=== PATIENT | male | born 1955 | race Caucasian/White ===

== ENCOUNTER 2020-08-02 14:08 | Inpatient (IN) ==
[2020-08-02] MEDS ORDERED: NON-FORMULARY MEDICATION 1 EACH EACH (Sildenafil Citrate [Viagra] 50 MG) PO PRN (21:12)
[2020-08-02] MEDS ORDERED: VANCOMYCIN 1500 MG IVPB SCH (21:15)
[2020-08-02] MEDS: *HR* OxyCODONE/APAP 5/325 TABLET PO PRN (22:11)
[2020-08-02] MEDS: Doxycycline 100 MG CAPSULE PO SCH (22:12)
[2020-08-03] MEDS: *HR* OxyCODONE Immed Rel 5 MG TABLET PO PRN ×3 (04:55→21:14)
[2020-08-03 04:57] LABS: Basophils % 0.4 %; Eosinophils # 0.7 K/mcL (0.0-0.6); Eosinophils % 7.5 %; Hematocrit 29.8 % (37.5-50.1); Hemoglobin 9.6 g/dL (12.9-16.9); Immature Granulocytes % 0.5 % (0-4); Lymphocytes # 0.6 K/mcL (0.6-4.6); Lymphocytes % 5.9 %; Mean Corpuscular HGB Conc 32.2 g/dL (31.6-35.5); Mean Corpuscular Hemoglobin 27.1 pg (28.0-33.3); Mean Corpuscular Volume 84.2 fL (83.0-100.0); Mean Platelet Volume 8.6 fL (9.4-12.4); Monocytes # 0.8 K/mcL (0.0-1.3); Neutrophils # 7.4 K/mcL (1.6-8.9); Platelet Count 276 K/mcL (140-400); Red Blood Count 3.54 M/mcL (4.19-5.50); Red Cell Distribution Width 16.1 % (11.5-14.5); Segmented Neutrophils % 77.7 %; White Blood Count 9.5 K/mcL (4.3-11.1)
[2020-08-03 05:01] LABS: INR 1.3; Prothrombin Time 14.4 Seconds (9.4-12.1)
[2020-08-03 05:12] LABS: BUN/Creatinine Ratio 27 (6-26); Blood Urea Nitrogen 16 mg/dL (8-23); Calcium 8.2 mg/dL (8.6-10.3); Carbon Dioxide 27 mEq/L (23-29); Chloride 104 mEq/L (98-107); Glucose 110 mg/dL (70-105); Osmolality,Calculated 284 (280-300); Potassium 4.1 mEq/L (3.5-5.1); Sodium 136 mEq/L (136-145); eGFR For African Americans > 60 (> 60); eGFR For Non-African Americans > 60 (> 60)
[2020-08-03] MEDS: amLODIPine 5 MG TABLET PO SCH (09:25)
[2020-08-03] MEDS: levoFLOXacin 750 MG TABLET PO SCH (09:25)
[2020-08-03] MEDS: Aspirin Enteric Coated 81 MG Tablet PO SCH (09:26)
[2020-08-03] MEDS: Doxycycline 100 MG CAPSULE PO SCH ×2 (09:26→21:14)
[2020-08-03] MEDS: *HR* OxyCODONE/APAP 5/325 TABLET PO PRN (10:40)
[2020-08-03] MEDS: Vancomycin 1,750 MG/517.5 ML IV.SOLN IVPB SCH ×2 (10:41→21:28)
[2020-08-03] MEDS: *HR* Enoxaparin 40 MG/0.4 ML SYRINGE SQ SCH (11:44)
[2020-08-04] MEDS: *HR* OxyCODONE/APAP 5/325 TABLET PO PRN ×2 (00:41→13:04)
[2020-08-04] MEDS: *HR* Enoxaparin 40 MG/0.4 ML SYRINGE SQ SCH (05:28)
[2020-08-04] MEDS: *HR* OxyCODONE Immed Rel 5 MG TABLET PO PRN ×2 (05:29→18:32)
[2020-08-04] MEDS: Aspirin Enteric Coated 81 MG Tablet PO SCH (08:29)
[2020-08-04] MEDS: Doxycycline 100 MG CAPSULE PO SCH (08:29)
[2020-08-04] MEDS: amLODIPine 5 MG TABLET PO SCH (08:29)
[2020-08-04] MEDS: levoFLOXacin 750 MG TABLET PO SCH (08:29)
[2020-08-04] MEDS: Vancomycin 1,750 MG/517.5 ML IV.SOLN IVPB SCH (11:01)
[2020-08-04] MEDS: tiZANidine 4 MG TABLET PO SCH ×2 (16:35→22:11)
[2020-08-04] MEDS: Acetaminophen 325 MG TABLET PO PRN (22:11)
[2020-08-04] MEDS: Vancomycin 2,000 MG/520 ML IV.SOLN IVPB SCH (22:12)
[2020-08-05] MEDS: *HR* Enoxaparin 40 MG/0.4 ML SYRINGE SQ SCH (04:47)
[2020-08-05] MEDS: *HR* OxyCODONE/APAP 5/325 TABLET PO PRN (04:47)
[2020-08-05] MEDS: amLODIPine 5 MG TABLET PO SCH (08:39)
[2020-08-05] MEDS: tiZANidine 4 MG TABLET PO SCH ×3 (08:39→22:05)
[2020-08-05] MEDS: Aspirin Enteric Coated 81 MG Tablet PO SCH (08:39)
[2020-08-05] MEDS: *HR* OxyCODONE Immed Rel 5 MG TABLET PO PRN ×2 (10:42→17:54)
[2020-08-05] MEDS: Vancomycin 2,000 MG/520 ML IV.SOLN IVPB SCH ×2 (11:16→22:09)
[2020-08-05 11:42] LABS: eGFR For African Americans > 60 (> 60); eGFR For Non-African Americans > 60 (> 60)
[2020-08-05] MEDS: Acetaminophen 325 MG TABLET PO PRN (22:06)
[2020-08-06] MEDS: *HR* OxyCODONE Immed Rel 5 MG TABLET PO PRN ×3 (00:18→22:58)
[2020-08-06] MEDS: *HR* OxyCODONE/APAP 5/325 TABLET PO PRN (04:55)
[2020-08-06] MEDS: *HR* Enoxaparin 40 MG/0.4 ML SYRINGE SQ SCH (04:55)
[2020-08-06] MEDS: tiZANidine 4 MG TABLET PO SCH ×3 (09:03→22:56)
[2020-08-06] MEDS: amLODIPine 5 MG TABLET PO SCH (09:03)
[2020-08-06] MEDS: Aspirin Enteric Coated 81 MG Tablet PO SCH (09:03)
[2020-08-06] MEDS: Vancomycin 2,000 MG/520 ML IV.SOLN IVPB SCH ×2 (11:59→22:47)
[2020-08-07] MEDS: *HR* OxyCODONE Immed Rel 5 MG TABLET PO PRN ×2 (05:01→21:40)
[2020-08-07] MEDS: *HR* Enoxaparin 40 MG/0.4 ML SYRINGE SQ SCH (05:02)
[2020-08-07 06:57] LABS: Basophils # 0.1 K/mcL (0.0-0.2); Basophils % 0.6 %; Eosinophils # 0.6 K/mcL (0.0-0.6); Eosinophils % 6.6 %; Hematocrit 28.5 % (37.5-50.1); Hemoglobin 8.9 g/dL (12.9-16.9); Immature Granulocytes % 0.6 % (0-4); Lymphocytes # 0.7 K/mcL (0.6-4.6); Lymphocytes % 8.3 %; Mean Corpuscular HGB Conc 31.2 g/dL (31.6-35.5); Mean Corpuscular Hemoglobin 26.5 pg (28.0-33.3); Mean Corpuscular Volume 84.8 fL (83.0-100.0); Mean Platelet Volume 8.6 fL (9.4-12.4); Monocytes # 0.6 K/mcL (0.0-1.3); Monocytes % 6.8 %; Neutrophils # 6.5 K/mcL (1.6-8.9); Platelet Count 390 K/mcL (140-400); Red Blood Count 3.36 M/mcL (4.19-5.50); Red Cell Distribution Width 15.9 % (11.5-14.5); Segmented Neutrophils % 77.1 %; White Blood Count 8.4 K/mcL (4.3-11.1)
[2020-08-07 07:50] LABS: BUN/Creatinine Ratio 16 (6-26); Blood Urea Nitrogen 9 mg/dL (8-23); Calcium 8.5 mg/dL (8.6-10.3); Carbon Dioxide 26 mEq/L (23-29); Chloride 106 mEq/L (98-107); Glucose 111 mg/dL (70-105); Osmolality,Calculated 287 (280-300); Potassium 3.7 mEq/L (3.5-5.1); Sodium 139 mEq/L (136-145); eGFR For African Americans > 60 (> 60); eGFR For Non-African Americans > 60 (> 60)
[2020-08-07] MEDS: Aspirin Enteric Coated 81 MG Tablet PO SCH (08:24)
[2020-08-07] MEDS: amLODIPine 5 MG TABLET PO SCH (08:24)
[2020-08-07] MEDS: tiZANidine 4 MG TABLET PO SCH ×3 (08:24→21:26)
[2020-08-07] MEDS: Vancomycin 2,000 MG/520 ML IV.SOLN IVPB SCH ×2 (10:50→21:29)
[2020-08-07] MEDS ORDERED: *HR* OxyCODONE Immed Rel 5 MG TABLET PO PRN (15:30)
[2020-08-07] MEDS: Gabapentin 100 MG CAPSULE PO SCH ×2 (16:07→21:25)
[2020-08-07] MEDS ORDERED: Gabapentin 100 MG CAPSULE PO SCH (21:00)
[2020-08-08] MEDS: *HR* OxyCODONE Immed Rel 5 MG TABLET PO PRN ×3 (05:15→22:29)
[2020-08-08] MEDS: *HR* Enoxaparin 40 MG/0.4 ML SYRINGE SQ SCH (05:15)
[2020-08-08] MEDS: Aspirin Enteric Coated 81 MG Tablet PO SCH (08:29)
[2020-08-08] MEDS: Gabapentin 100 MG CAPSULE PO SCH ×3 (08:29→22:29)
[2020-08-08] MEDS: tiZANidine 4 MG TABLET PO SCH ×3 (08:30→22:29)
[2020-08-08] MEDS: amLODIPine 5 MG TABLET PO SCH (08:30)
[2020-08-08] MEDS: Vancomycin 2,000 MG/520 ML IV.SOLN IVPB SCH ×2 (10:04→22:12)
[2020-08-09] MEDS: *HR* OxyCODONE Immed Rel 5 MG TABLET PO PRN ×2 (06:20→21:23)
[2020-08-09] MEDS: *HR* Enoxaparin 40 MG/0.4 ML SYRINGE SQ SCH (06:20)
[2020-08-09] MEDS: Aspirin Enteric Coated 81 MG Tablet PO SCH (09:17)
[2020-08-09] MEDS: tiZANidine 4 MG TABLET PO SCH ×3 (09:17→21:23)
[2020-08-09] MEDS: Gabapentin 100 MG CAPSULE PO SCH ×3 (09:17→21:22)
[2020-08-09] MEDS: amLODIPine 5 MG TABLET PO SCH (09:17)
[2020-08-09] MEDS: Vancomycin 2,000 MG/520 ML IV.SOLN IVPB SCH ×2 (11:14→21:24)
[2020-08-09 15:40] LABS: Basophils # 0.1 K/mcL (0.0-0.2); Basophils % 0.5 %; Eosinophils # 0.6 K/mcL (0.0-0.6); Eosinophils % 5.7 %; Hematocrit 28.8 % (37.5-50.1); Hemoglobin 9.2 g/dL (12.9-16.9); Immature Granulocytes % 0.4 % (0-4); Lymphocytes # 0.6 K/mcL (0.6-4.6); Lymphocytes % 5.8 %; Mean Corpuscular HGB Conc 31.9 g/dL (31.6-35.5); Mean Corpuscular Hemoglobin 26.9 pg (28.0-33.3); Mean Corpuscular Volume 84.2 fL (83.0-100.0); Mean Platelet Volume 8.1 fL (9.4-12.4); Monocytes # 0.6 K/mcL (0.0-1.3); Monocytes % 5.8 %; Neutrophils # 7.9 K/mcL (1.6-8.9); Platelet Count 358 K/mcL (140-400); Red Blood Count 3.42 M/mcL (4.19-5.50); Red Cell Distribution Width 15.9 % (11.5-14.5); Segmented Neutrophils % 81.8 %; White Blood Count 9.7 K/mcL (4.3-11.1)
[2020-08-09 16:13] LABS: BUN/Creatinine Ratio 20 (6-26); Blood Urea Nitrogen 12 mg/dL (8-23); Calcium 8.4 mg/dL (8.6-10.3); Carbon Dioxide 26 mEq/L (23-29); Chloride 106 mEq/L (98-107); Glucose 120 mg/dL (70-105); Osmolality,Calculated 289 (280-300); Potassium 3.6 mEq/L (3.5-5.1); Sodium 139 mEq/L (136-145); eGFR For African Americans > 60 (> 60); eGFR For Non-African Americans > 60 (> 60)
[2020-08-10] MEDS: *HR* OxyCODONE Immed Rel 5 MG TABLET PO PRN ×2 (06:44→17:49)
[2020-08-10] MEDS: *HR* Enoxaparin 40 MG/0.4 ML SYRINGE SQ SCH (06:46)
[2020-08-10] MEDS: tiZANidine 4 MG TABLET PO SCH ×3 (08:35→22:51)
[2020-08-10] MEDS: Aspirin Enteric Coated 81 MG Tablet PO SCH (08:35)
[2020-08-10] MEDS: amLODIPine 5 MG TABLET PO SCH (08:35)
[2020-08-10] MEDS: Gabapentin 100 MG CAPSULE PO SCH ×3 (08:35→22:51)
[2020-08-10 09:24] LABS: eGFR For African Americans > 60 (> 60); eGFR For Non-African Americans > 60 (> 60)
[2020-08-10] MEDS: Vancomycin 2,000 MG/520 ML IV.SOLN IVPB SCH ×2 (11:14→22:53)
[2020-08-11] MEDS: *HR* Enoxaparin 40 MG/0.4 ML SYRINGE SQ SCH (06:36)
[2020-08-11] MEDS: *HR* OxyCODONE Immed Rel 5 MG TABLET PO PRN ×2 (10:02→16:02)
[2020-08-11] MEDS: tiZANidine 4 MG TABLET PO SCH ×3 (10:02→21:49)
[2020-08-11] MEDS: Aspirin Enteric Coated 81 MG Tablet PO SCH (10:02)
[2020-08-11] MEDS: Vancomycin 2,000 MG/520 ML IV.SOLN IVPB SCH ×2 (10:03→21:52)
[2020-08-11] MEDS: Gabapentin 100 MG CAPSULE PO SCH ×3 (10:03→21:49)
[2020-08-11] MEDS: amLODIPine 5 MG TABLET PO SCH (10:03)
[2020-08-11] MEDS: *HR* OxyCODONE/APAP 5/325 TABLET PO PRN (21:49)
[2020-08-12] MEDS: *HR* Enoxaparin 40 MG/0.4 ML SYRINGE SQ SCH (06:16)
[2020-08-12] MEDS: *HR* OxyCODONE/APAP 5/325 TABLET PO PRN ×2 (06:16→20:46)
[2020-08-12] MEDS: Aspirin Enteric Coated 81 MG Tablet PO SCH (09:40)
[2020-08-12] MEDS: Acetaminophen 325 MG TABLET PO PRN (09:40)
[2020-08-12] MEDS: tiZANidine 4 MG TABLET PO SCH ×3 (09:40→20:45)
[2020-08-12] MEDS: amLODIPine 5 MG TABLET PO SCH (09:41)
[2020-08-12] MEDS: Gabapentin 100 MG CAPSULE PO SCH ×3 (09:41→20:45)
[2020-08-12] MEDS: Vancomycin 2,000 MG/520 ML IV.SOLN IVPB SCH ×2 (11:06→20:46)
[2020-08-12] MEDS: *HR* OxyCODONE Immed Rel 5 MG TABLET PO PRN (15:31)
[2020-08-13] MEDS: *HR* OxyCODONE Immed Rel 5 MG TABLET PO PRN ×2 (05:32→17:54)
[2020-08-13] MEDS: tiZANidine 4 MG TABLET PO SCH ×3 (09:06→22:09)
[2020-08-13] MEDS: amLODIPine 5 MG TABLET PO SCH (09:06)
[2020-08-13] MEDS: Gabapentin 100 MG CAPSULE PO SCH ×3 (09:06→22:09)
[2020-08-13 09:23] LABS: Basophils # 0.1 K/mcL (0.0-0.2); Basophils % 0.8 %; Eosinophils # 0.5 K/mcL (0.0-0.6); Eosinophils % 7.3 %; Hematocrit 30.5 % (37.5-50.1); Hemoglobin 9.7 g/dL (12.9-16.9); Immature Granulocytes % 0.3 % (0-4); Lymphocytes # 0.6 K/mcL (0.6-4.6); Lymphocytes % 8.9 %; Mean Corpuscular HGB Conc 31.8 g/dL (31.6-35.5); Mean Corpuscular Hemoglobin 26.5 pg (28.0-33.3); Mean Corpuscular Volume 83.3 fL (83.0-100.0); Mean Platelet Volume 8.1 fL (9.4-12.4); Monocytes # 0.5 K/mcL (0.0-1.3); Platelet Count 313 K/mcL (140-400); Red Blood Count 3.66 M/mcL (4.19-5.50); Red Cell Distribution Width 15.7 % (11.5-14.5); Segmented Neutrophils % 75.7 %; White Blood Count 6.5 K/mcL (4.3-11.1)
[2020-08-13] MEDS: *HR* OxyCODONE/APAP 5/325 TABLET PO PRN ×2 (10:59→22:07)
[2020-08-13] MEDS: Vancomycin 2,000 MG/520 ML IV.SOLN IVPB SCH (10:59)
[2020-08-13 15:46] LABS: BUN/Creatinine Ratio 12 (6-26); Blood Urea Nitrogen 7 mg/dL (8-23); Calcium 8.5 mg/dL (8.6-10.3); Carbon Dioxide 24 mEq/L (23-29); Chloride 104 mEq/L (98-107); Glucose 128 mg/dL (70-105); Osmolality,Calculated 286 (280-300); Potassium 3.9 mEq/L (3.5-5.1); Sodium 138 mEq/L (136-145); eGFR For African Americans > 60 (> 60); eGFR For Non-African Americans > 60 (> 60)
[2020-08-13 19:48] LABS: C-Reactive Protein 48 mg/L (Less than 10)
[2020-08-14] MEDS: Vancomycin 2,000 MG/520 ML IV.SOLN IVPB SCH ×2 (02:06→13:46)
[2020-08-14] MEDS: *HR* OxyCODONE Immed Rel 5 MG TABLET PO PRN (09:02)
[2020-08-14] MEDS: amLODIPine 5 MG TABLET PO SCH (09:02)
[2020-08-14] MEDS: Gabapentin 100 MG CAPSULE PO SCH ×3 (09:03→21:52)
[2020-08-14] MEDS: tiZANidine 4 MG TABLET PO SCH ×3 (09:03→21:52)
[2020-08-14] MEDS: Nystatin Cream 15 GM TUBE TP SCH ×2 (13:47→21:52)
[2020-08-14] MEDS: Acetaminophen 325 MG TABLET PO PRN (21:51)
[2020-08-15] MEDS: Vancomycin 2,000 MG/520 ML IV.SOLN IVPB SCH ×2 (01:44→13:59)
[2020-08-15] MEDS: *HR* OxyCODONE Immed Rel 5 MG TABLET PO PRN ×3 (01:45→18:19)
[2020-08-15] MEDS: amLODIPine 5 MG TABLET PO SCH (09:50)
[2020-08-15] MEDS: tiZANidine 4 MG TABLET PO SCH ×3 (09:50→20:12)
[2020-08-15] MEDS: Nystatin Cream 15 GM TUBE TP SCH ×3 (09:50→20:12)
[2020-08-15] MEDS: Gabapentin 100 MG CAPSULE PO SCH ×3 (09:50→20:12)
[2020-08-15] MEDS: Acetaminophen 325 MG TABLET PO PRN (20:12)
[2020-08-16] MEDS: Vancomycin 2,000 MG/520 ML IV.SOLN IVPB SCH ×2 (02:12→14:32)
[2020-08-16] MEDS: *HR* OxyCODONE Immed Rel 5 MG TABLET PO PRN ×2 (04:04→15:34)
[2020-08-16] MEDS: tiZANidine 4 MG TABLET PO SCH ×3 (09:09→23:09)
[2020-08-16] MEDS: Nystatin Cream 15 GM TUBE TP SCH ×3 (09:10→23:10)
[2020-08-16] MEDS: amLODIPine 5 MG TABLET PO SCH (09:10)
[2020-08-16] MEDS: Gabapentin 100 MG CAPSULE PO SCH ×3 (09:10→23:09)
[2020-08-16 13:56] LABS: BUN/Creatinine Ratio 16 (6-26); Blood Urea Nitrogen 13 mg/dL (8-23); eGFR For African Americans > 60 (> 60); eGFR For Non-African Americans > 60 (> 60)
[2020-08-16] MEDS: Vancomycin 1,750 MG/517.5 ML IV.SOLN IVPB SCH (18:52)
[2020-08-16] MEDS ORDERED: *HR* OxyCODONE/APAP 5/325 TABLET PO PRN (21:27)
[2020-08-17] MEDS: *HR* OxyCODONE Immed Rel 5 MG TABLET PO PRN ×3 (01:59→14:33)
[2020-08-17] MEDS: Vancomycin 1,750 MG/517.5 ML IV.SOLN IVPB SCH ×2 (06:48→18:32)
[2020-08-17] MEDS: Nystatin Cream 15 GM TUBE TP SCH ×3 (08:28→20:58)
[2020-08-17] MEDS: amLODIPine 5 MG TABLET PO SCH (08:29)
[2020-08-17] MEDS: Gabapentin 100 MG CAPSULE PO SCH ×3 (08:29→20:58)
[2020-08-17] MEDS: tiZANidine 4 MG TABLET PO SCH ×3 (08:29→20:58)
[2020-08-18] MEDS: *HR* OxyCODONE Immed Rel 5 MG TABLET PO PRN ×3 (01:33→21:07)
[2020-08-18 05:47] LABS: Hemoglobin 8.9 g/dL (12.9-16.9); Mean Corpuscular HGB Conc 31.8 g/dL (31.6-35.5); Mean Corpuscular Hemoglobin 26.3 pg (28.0-33.3); Mean Corpuscular Volume 82.8 fL (83.0-100.0); Mean Platelet Volume 8.2 fL (9.4-12.4); Platelet Count 225 K/mcL (140-400); Red Blood Count 3.38 M/mcL (4.19-5.50); Red Cell Distribution Width 15.9 % (11.5-14.5); White Blood Count 5.8 K/mcL (4.3-11.1)
[2020-08-18 06:01] LABS: BUN/Creatinine Ratio 16 (6-26); Blood Urea Nitrogen 21 mg/dL (8-23); Calcium 8.6 mg/dL (8.6-10.3); Carbon Dioxide 28 mEq/L (23-29); Chloride 105 mEq/L (98-107); Glucose 110 mg/dL (70-105); Magnesium 1.8 mg/dL (1.6-2.6); Osmolality,Calculated 294 (280-300); Potassium 4.2 mEq/L (3.5-5.1); Sodium 140 mEq/L (136-145); eGFR For African Americans > 60 (> 60); eGFR For Non-African Americans 54 (> 60)
[2020-08-18] MEDS: Vancomycin 1,750 MG/517.5 ML IV.SOLN IVPB SCH (07:59)
[2020-08-18] MEDS: Nystatin Cream 15 GM TUBE TP SCH ×3 (08:08→21:09)
[2020-08-18] MEDS: amLODIPine 5 MG TABLET PO SCH (08:09)
[2020-08-18] MEDS: Gabapentin 100 MG CAPSULE PO SCH (08:10)
[2020-08-18] MEDS: tiZANidine 4 MG TABLET PO SCH ×3 (08:10→21:07)
[2020-08-19] MEDS: *HR* OxyCODONE Immed Rel 5 MG TABLET PO PRN ×3 (03:47→16:04)
[2020-08-19] MEDS: tiZANidine 4 MG TABLET PO SCH ×3 (09:43→20:53)
[2020-08-19] MEDS: amLODIPine 5 MG TABLET PO SCH (09:44)
[2020-08-19] MEDS: Nystatin Cream 15 GM TUBE TP SCH ×3 (09:46→20:55)
[2020-08-20] MEDS: *HR* OxyCODONE Immed Rel 5 MG TABLET PO PRN ×3 (04:54→20:37)
[2020-08-20 05:37] LABS: eGFR For African Americans > 60 (> 60); eGFR For Non-African Americans 54 (> 60)
[2020-08-20] MEDS: tiZANidine 4 MG TABLET PO SCH ×3 (07:50→20:37)
[2020-08-20] MEDS: amLODIPine 5 MG TABLET PO SCH (07:50)
[2020-08-20] MEDS: Nystatin Cream 15 GM TUBE TP SCH ×3 (07:51→20:38)
[2020-08-20] MEDS ORDERED: Vancomycin 1,000 MG, Vancomycin 500 MG in 0.9 % Sodium Chloride 250 ML IVPB ONE (12:00)
[2020-08-20] MEDS: 0.9 % Sodium Chloride 1,000 ML IVC SCH ×2 (12:08→18:52)
[2020-08-20] MEDS: Ondansetron ODT 4 MG TAB.RAPDIS SL PRN (12:08)
[2020-08-20 12:12] LABS: Basophils % 0.5 %; Eosinophils # 0.2 K/mcL (0.0-0.6); Eosinophils % 2.9 %; Hematocrit 27.7 % (37.5-50.1); Hemoglobin 8.8 g/dL (12.9-16.9); Immature Granulocytes % 0.5 % (0-4); Lymphocytes # 0.4 K/mcL (0.6-4.6); Lymphocytes % 4.5 %; Mean Corpuscular HGB Conc 31.8 g/dL (31.6-35.5); Mean Corpuscular Hemoglobin 26.2 pg (28.0-33.3); Mean Corpuscular Volume 82.4 fL (83.0-100.0); Mean Platelet Volume 8.4 fL (9.4-12.4); Monocytes # 0.9 K/mcL (0.0-1.3); Monocytes % 10.6 %; Neutrophils # 6.5 K/mcL (1.6-8.9); Platelet Count 232 K/mcL (140-400); Red Blood Count 3.36 M/mcL (4.19-5.50); Red Cell Distribution Width 15.6 % (11.5-14.5)
[2020-08-20 12:44] LABS: Calcium 8.8 mg/dL (8.6-10.3); Potassium 4.6 mEq/L (3.5-5.1)
[2020-08-20] MEDS ORDERED: Vancomycin 500 MG in 0.9 % Sodium Chloride 250 ML IVPB ONE (14:00)
[2020-08-21] MEDS: *HR* OxyCODONE Immed Rel 5 MG TABLET PO PRN ×3 (02:17→17:40)
[2020-08-21 07:01] LABS: eGFR For African Americans > 60 (> 60); eGFR For Non-African Americans 50 (> 60)
[2020-08-21] MEDS: Nystatin Cream 15 GM TUBE TP SCH ×3 (08:21→20:42)
[2020-08-21] MEDS: amLODIPine 5 MG TABLET PO SCH (08:22)
[2020-08-21] MEDS: tiZANidine 4 MG TABLET PO SCH ×3 (08:22→20:43)
[2020-08-21] MEDS: Vancomycin 1,500 MG/265 ML IV.SOLN IVPB SCH (12:01)
[2020-08-22] MEDS: *HR* OxyCODONE Immed Rel 5 MG TABLET PO PRN ×3 (01:08→21:09)
[2020-08-22] MEDS: Ondansetron ODT 4 MG TAB.RAPDIS SL PRN (06:41)
[2020-08-22] MEDS: tiZANidine 4 MG TABLET PO SCH ×3 (09:58→21:08)
[2020-08-22] MEDS: Nystatin Cream 15 GM TUBE TP SCH ×3 (09:59→21:10)
[2020-08-22] MEDS: amLODIPine 5 MG TABLET PO SCH (09:59)
[2020-08-22] MEDS: Vancomycin 1,500 MG/265 ML IV.SOLN IVPB SCH (13:05)
[2020-08-23] MEDS: *HR* OxyCODONE Immed Rel 5 MG TABLET PO PRN ×3 (03:21→21:08)
[2020-08-23] MEDS: amLODIPine 5 MG TABLET PO SCH (08:37)
[2020-08-23] MEDS: tiZANidine 4 MG TABLET PO SCH ×3 (08:38→21:08)
[2020-08-23] MEDS: Nystatin Cream 15 GM TUBE TP SCH ×3 (08:38→21:52)
[2020-08-23] MEDS: Vancomycin 1,500 MG/265 ML IV.SOLN IVPB SCH (12:39)
[2020-08-24] MEDS: *HR* OxyCODONE Immed Rel 5 MG TABLET PO PRN (05:09)
[2020-08-24 05:43] LABS: eGFR For African Americans > 60 (> 60); eGFR For Non-African Americans 53 (> 60)
[2020-08-24] MEDS: tiZANidine 4 MG TABLET PO SCH ×3 (08:00→20:30)
[2020-08-24] MEDS: amLODIPine 5 MG TABLET PO SCH (08:01)
[2020-08-24] MEDS: Nystatin Cream 15 GM TUBE TP SCH ×3 (08:01→20:31)
[2020-08-24] MEDS: Vancomycin 1,500 MG/265 ML IV.SOLN IVPB SCH (11:47)
[2020-08-24] MEDS: Ondansetron ODT 4 MG TAB.RAPDIS SL PRN (15:45)
[2020-08-24] MEDS: Acetaminophen 325 MG TABLET PO PRN (20:31)
[2020-08-25 05:45] LABS: Basophils % 0.7 %; Eosinophils # 0.6 K/mcL (0.0-0.6); Eosinophils % 9.6 %; Hemoglobin 8.2 g/dL (12.9-16.9); Immature Granulocytes % 0.3 % (0-4); Lymphocytes # 0.8 K/mcL (0.6-4.6); Lymphocytes % 12.7 %; Mean Corpuscular HGB Conc 31.5 g/dL (31.6-35.5); Mean Corpuscular Hemoglobin 25.7 pg (28.0-33.3); Mean Corpuscular Volume 81.5 fL (83.0-100.0); Mean Platelet Volume 8.6 fL (9.4-12.4); Monocytes # 0.5 K/mcL (0.0-1.3); Monocytes % 8.7 %; Neutrophils # 4.1 K/mcL (1.6-8.9); Platelet Count 241 K/mcL (140-400); Red Blood Count 3.19 M/mcL (4.19-5.50); Red Cell Distribution Width 14.9 % (11.5-14.5); White Blood Count 6.1 K/mcL (4.3-11.1)
[2020-08-25 05:58] LABS: BUN/Creatinine Ratio 12 (6-26); Blood Urea Nitrogen 16 mg/dL (8-23); Calcium 8.4 mg/dL (8.6-10.3); Carbon Dioxide 28 mEq/L (23-29); Chloride 103 mEq/L (98-107); Glucose 101 mg/dL (70-105); Osmolality,Calculated 289 (280-300); Potassium 3.4 mEq/L (3.5-5.1); Sodium 139 mEq/L (136-145); eGFR For African Americans > 60 (> 60); eGFR For Non-African Americans 55 (> 60)
[2020-08-25] MEDS: *HR* OxyCODONE Immed Rel 5 MG TABLET PO PRN ×3 (06:05→20:37)
[2020-08-25] MEDS: amLODIPine 5 MG TABLET PO SCH (09:16)
[2020-08-25] MEDS: tiZANidine 4 MG TABLET PO SCH ×3 (09:16→20:37)
[2020-08-25] MEDS: Nystatin Cream 15 GM TUBE TP SCH ×5 (09:17→20:37)
[2020-08-25 10:15] LABS: C-Reactive Protein 84 mg/L (Less than 10)
[2020-08-25] MEDS: Vancomycin 1,500 MG/265 ML IV.SOLN IVPB SCH (12:45)
[2020-08-26] MEDS: *HR* OxyCODONE Immed Rel 5 MG TABLET PO PRN ×3 (03:32→21:44)
[2020-08-26 07:48] LABS: Basophils % 0.7 %; Eosinophils # 0.6 K/mcL (0.0-0.6); Eosinophils % 9.6 %; Hematocrit 26.3 % (37.5-50.1); Hemoglobin 8.4 g/dL (12.9-16.9); Immature Granulocytes % 0.3 % (0-4); Lymphocytes % 16.2 %; Mean Corpuscular HGB Conc 31.9 g/dL (31.6-35.5); Mean Corpuscular Hemoglobin 25.8 pg (28.0-33.3); Mean Corpuscular Volume 80.7 fL (83.0-100.0); Mean Platelet Volume 8.4 fL (9.4-12.4); Monocytes # 0.6 K/mcL (0.0-1.3); Monocytes % 10.1 %; Neutrophils # 3.7 K/mcL (1.6-8.9); Platelet Count 245 K/mcL (140-400); Red Blood Count 3.26 M/mcL (4.19-5.50); Red Cell Distribution Width 15.1 % (11.5-14.5); Segmented Neutrophils % 63.1 %; White Blood Count 5.9 K/mcL (4.3-11.1)
[2020-08-26 07:58] LABS: eGFR For African Americans > 60 (> 60); eGFR For Non-African Americans 59 (> 60)
[2020-08-26] MEDS: amLODIPine 5 MG TABLET PO SCH (08:14)
[2020-08-26] MEDS: tiZANidine 4 MG TABLET PO SCH ×3 (08:14→21:44)
[2020-08-26] MEDS: Nystatin Cream 15 GM TUBE TP SCH ×3 (08:14→21:43)
[2020-08-26] MEDS: Ondansetron ODT 4 MG TAB.RAPDIS SL PRN (09:18)
[2020-08-26] MEDS: Vancomycin 1,500 MG/265 ML IV.SOLN IVPB SCH (12:32)
[2020-08-26 15:13] LABS: BUN/Creatinine Ratio 11 (6-26); Blood Urea Nitrogen 14 mg/dL (8-23); Calcium 8.5 mg/dL (8.6-10.3); Carbon Dioxide 28 mEq/L (23-29); Chloride 103 mEq/L (98-107); Glucose 105 mg/dL (70-105); Osmolality,Calculated 289 (280-300); Potassium 3.6 mEq/L (3.5-5.1); Sodium 139 mEq/L (136-145)
[2020-08-27 05:07] LABS: eGFR For African Americans > 60 (> 60); eGFR For Non-African Americans 52 (> 60)
[2020-08-27] MEDS: *HR* OxyCODONE Immed Rel 5 MG TABLET PO PRN ×2 (06:11→14:06)
[2020-08-27 08:41] LABS: % Iron Saturation 11 % (20-55); Iron 26 mcg/dL (65-175); Transferrin 164 mg/dL (203-362)
[2020-08-27 09:06] LABS: Folate 9.8 ng/mL (3.0-16.0)
[2020-08-27] MEDS: Fluconazole 100 MG TABLET PO SCH (09:08)
[2020-08-27] MEDS: Nystatin Cream 15 GM TUBE TP SCH ×3 (09:08→21:05)
[2020-08-27] MEDS: amLODIPine 5 MG TABLET PO SCH (09:08)
[2020-08-27] MEDS: tiZANidine 4 MG TABLET PO SCH ×3 (09:08→21:05)
[2020-08-27] MEDS: Vancomycin 1,500 MG/265 ML IV.SOLN IVPB SCH (12:40)
[2020-08-28] MEDS: *HR* OxyCODONE Immed Rel 5 MG TABLET PO PRN ×2 (04:53→20:56)
[2020-08-28] MEDS: tiZANidine 4 MG TABLET PO SCH ×3 (08:48→19:37)
[2020-08-28] MEDS: amLODIPine 5 MG TABLET PO SCH (08:48)
[2020-08-28] MEDS: Fluconazole 100 MG TABLET PO SCH (08:48)
[2020-08-28] MEDS: Nystatin Cream 15 GM TUBE TP SCH ×3 (08:49→19:37)
[2020-08-28] MEDS: Ondansetron ODT 4 MG TAB.RAPDIS SL PRN (10:23)
[2020-08-28 11:20] LABS: Basophils # 0.1 K/mcL (0.0-0.2); Basophils % 0.6 %; Eosinophils # 0.4 K/mcL (0.0-0.6); Eosinophils % 4.8 %; Hematocrit 24.6 % (37.5-50.1); Hemoglobin 7.7 g/dL (12.9-16.9); Immature Granulocytes % 0.2 % (0-4); Lymphocytes # 0.6 K/mcL (0.6-4.6); Lymphocytes % 7.1 %; Mean Corpuscular HGB Conc 31.3 g/dL (31.6-35.5); Mean Corpuscular Hemoglobin 25.8 pg (28.0-33.3); Mean Corpuscular Volume 82.3 fL (83.0-100.0); Mean Platelet Volume 8.5 fL (9.4-12.4); Monocytes # 0.7 K/mcL (0.0-1.3); Monocytes % 7.6 %; Neutrophils # 6.9 K/mcL (1.6-8.9); Platelet Count 216 K/mcL (140-400); Red Blood Count 2.99 M/mcL (4.19-5.50); Red Cell Distribution Width 15.3 % (11.5-14.5); Segmented Neutrophils % 79.7 %; White Blood Count 8.6 K/mcL (4.3-11.1)
[2020-08-28 11:48] LABS: eGFR For African Americans > 60 (> 60); eGFR For Non-African Americans 59 (> 60)
[2020-08-28] MEDS: Vancomycin 1,500 MG/265 ML IV.SOLN IVPB SCH (12:24)
[2020-08-29 06:14] LABS: eGFR For African Americans > 60 (> 60); eGFR For Non-African Americans > 60 (> 60)
[2020-08-29] MEDS: *HR* OxyCODONE Immed Rel 5 MG TABLET PO PRN ×2 (07:10→21:28)
[2020-08-29] MEDS: tiZANidine 4 MG TABLET PO SCH ×3 (08:44→21:27)
[2020-08-29] MEDS: Fluconazole 100 MG TABLET PO SCH (08:44)
[2020-08-29] MEDS: amLODIPine 5 MG TABLET PO SCH (08:44)
[2020-08-29] MEDS: Nystatin Cream 15 GM TUBE TP SCH ×3 (11:16→21:28)
[2020-08-29] MEDS: Vancomycin 1,500 MG/265 ML IV.SOLN IVPB SCH (12:08)
[2020-08-29 12:58] LABS: Basophils # 0.1 K/mcL (0.0-0.2); Basophils % 0.5 %; Eosinophils # 0.8 K/mcL (0.0-0.6); Hematocrit 25.6 % (37.5-50.1); Hemoglobin 7.8 g/dL (12.9-16.9); Immature Granulocytes % 0.3 % (0-4); Lymphocytes % 10.5 %; Mean Corpuscular HGB Conc 30.5 g/dL (31.6-35.5); Mean Corpuscular Hemoglobin 25.5 pg (28.0-33.3); Mean Corpuscular Volume 83.7 fL (83.0-100.0); Mean Platelet Volume 8.5 fL (9.4-12.4); Monocytes # 0.8 K/mcL (0.0-1.3); Monocytes % 8.4 %; Neutrophils # 6.5 K/mcL (1.6-8.9); Platelet Count 262 K/mcL (140-400); Red Blood Count 3.06 M/mcL (4.19-5.50); Red Cell Distribution Width 15.7 % (11.5-14.5); Segmented Neutrophils % 71.3 %; White Blood Count 9.2 K/mcL (4.3-11.1)
[2020-08-30] MEDS: *HR* OxyCODONE Immed Rel 5 MG TABLET PO PRN (06:26)
[2020-08-30] MEDS: Fluconazole 100 MG TABLET PO SCH (08:22)
[2020-08-30] MEDS: tiZANidine 4 MG TABLET PO SCH ×3 (08:22→20:40)
[2020-08-30] MEDS: amLODIPine 5 MG TABLET PO SCH (08:22)
[2020-08-30] MEDS: Nystatin Cream 15 GM TUBE TP SCH ×3 (08:22→20:40)
[2020-08-30] MEDS: Vancomycin 1,500 MG/265 ML IV.SOLN IVPB SCH (12:06)
[2020-08-30] MEDS: Ondansetron ODT 4 MG TAB.RAPDIS SL PRN (17:20)
[2020-08-30] MEDS: Acetaminophen 325 MG TABLET PO PRN (20:40)
[2020-08-31 05:43] LABS: eGFR For African Americans > 60 (> 60); eGFR For Non-African Americans 53 (> 60)
[2020-08-31] MEDS: *HR* OxyCODONE Immed Rel 5 MG TABLET PO PRN ×3 (05:57→21:21)
[2020-08-31] MEDS: tiZANidine 4 MG TABLET PO SCH ×3 (09:51→20:48)
[2020-08-31] MEDS: amLODIPine 5 MG TABLET PO SCH (09:51)
[2020-08-31] MEDS: Nystatin Cream 15 GM TUBE TP SCH ×3 (09:52→20:51)
[2020-08-31] MEDS ORDERED: Vancomycin 1,750 MG/517.5 ML IV.SOLN IVPB SCH (12:00)
[2020-09-01] MEDS: *HR* OxyCODONE Immed Rel 5 MG TABLET PO PRN ×3 (05:52→21:42)
[2020-09-01] MEDS ORDERED: Vancomycin 1 EACH in 0.9 % Sodium Chloride 250 ML IVPB PRN (08:00)
[2020-09-01] MEDS: Ondansetron ODT 4 MG TAB.RAPDIS SL PRN (08:40)
[2020-09-01] MEDS: amLODIPine 5 MG TABLET PO SCH (09:36)
[2020-09-01] MEDS: Nystatin Cream 15 GM TUBE TP SCH ×3 (09:37→21:42)
[2020-09-01] MEDS: tiZANidine 4 MG TABLET PO SCH ×3 (09:37→21:42)
[2020-09-02] MEDS: *HR* OxyCODONE Immed Rel 5 MG TABLET PO PRN ×2 (06:40→20:28)
[2020-09-02] MEDS: tiZANidine 4 MG TABLET PO SCH ×3 (08:47→20:28)
[2020-09-02] MEDS: amLODIPine 5 MG TABLET PO SCH (08:47)
[2020-09-02] MEDS: Nystatin Cream 15 GM TUBE TP SCH ×3 (08:48→20:27)
[2020-09-02 11:17] LABS: INR 1.4; Prothrombin Time 15.5 Seconds (9.4-12.1)
[2020-09-02 17:25] LABS: Bilirubin,Urine Negative (Negative); Blood,Urine Trace-lysed (Negative); Clarity,Urine Slightly Cloudy (Clear); Color,Urine Yellow (Yellow); Glucose,Urine (UA) Normal (Normal); Ketones,Urine Negative (Negative); Leukocyte Esterase,Urine Small (Negative); Nitrite,Urine Negative (Negative); PH,Urine 5.5 pH Units (5.0-8.0); Protein,Urine 30 mg/dL (Neg-Trace); Specific Gravity,Urine 1.025 (1.010-1.025); Urobilinogen,Urine Normal (Normal)
[2020-09-02 17:30] LABS: Hyaline Casts,Urine Few per lpf (None Seen); Mucus,Urine Few per lpf (None-Few); Squamous Epithelial Cell,Urine Few per hpf (None-Few); WBC,Urine 30-50 per hpf (0-3)
[2020-09-02 17:31] LABS: Bacteria,Urine Moderate per hpf (None-Few)
[2020-09-02] MEDS: Ondansetron ODT 4 MG TAB.RAPDIS SL PRN (20:29)
[2020-09-03] MEDS: *HR* OxyCODONE Immed Rel 5 MG TABLET PO PRN ×2 (06:12→20:31)
[2020-09-03] MEDS: tiZANidine 4 MG TABLET PO SCH ×3 (09:29→20:30)
[2020-09-03] MEDS: Nystatin Cream 15 GM TUBE TP SCH ×3 (09:29→21:01)
[2020-09-03] MEDS: amLODIPine 5 MG TABLET PO SCH (09:29)
[2020-09-04 05:18] LABS: Hemoglobin 6.9 g/dL (12.9-16.9); Mean Corpuscular HGB Conc 31.4 g/dL (31.6-35.5); Mean Corpuscular Hemoglobin 25.5 pg (28.0-33.3); Mean Corpuscular Volume 81.2 fL (83.0-100.0); Mean Platelet Volume 8.2 fL (9.4-12.4); Platelet Count 198 K/mcL (140-400); Red Blood Count 2.71 M/mcL (4.19-5.50); Red Cell Distribution Width 15.9 % (11.5-14.5); White Blood Count 6.9 K/mcL (4.3-11.1)
[2020-09-04 05:38] LABS: Albumin 3.2 g/dL (3.5-5.7); Albumin/Globulin Ratio 1.1 (1.1-2.2); Bilirubin,Total 0.4 mg/dL (0.3-1.0); Calcium 8.6 mg/dL (8.6-10.3); Globulin 2.8 g/dL (2.4-3.5); Magnesium 1.6 mg/dL (1.6-2.6); Potassium 3.5 mEq/L (3.5-5.1)
[2020-09-04] MEDS: *HR* OxyCODONE Immed Rel 5 MG TABLET PO PRN (07:34)
[2020-09-04] MEDS: Ondansetron ODT 4 MG TAB.RAPDIS SL PRN ×2 (08:04→18:49)
[2020-09-04] MEDS: Nystatin Cream 15 GM TUBE TP SCH ×3 (08:55→21:00)
[2020-09-04] MEDS: amLODIPine 5 MG TABLET PO SCH (08:55)
[2020-09-04] MEDS: tiZANidine 4 MG TABLET PO SCH ×3 (08:55→20:57)
[2020-09-04] MEDS ORDERED: 0.9 % Sodium Chloride 250 ML IVC SCH (11:45)
[2020-09-04] MEDS: Cyanocobalamin (B-12) 1,000 MCG TABLET PO SCH (13:49)
[2020-09-04] MEDS: Sucralfate 1 GM TABLET PO SCH ×2 (14:12→20:56)
[2020-09-04] MEDS ORDERED: *HR* Alteplase (Cathflo) 2 MG VIAL IVP ONE (20:00)
[2020-09-04] MEDS: Ascorbic Acid 500 MG TABLET PO SCH (20:56)
[2020-09-04] MEDS: Acetaminophen 325 MG TABLET PO PRN (20:57)
[2020-09-05] MEDS: *HR* OxyCODONE Immed Rel 5 MG TABLET PO PRN ×2 (06:15→15:45)
[2020-09-05 06:39] LABS: Basophils % 0.6 %; Eosinophils # 0.9 K/mcL (0.0-0.6); Eosinophils % 12.8 %; Hematocrit 28.1 % (37.5-50.1); Immature Granulocytes % 0.3 % (0-4); Lymphocytes # 0.7 K/mcL (0.6-4.6); Lymphocytes % 8.9 %; Mean Corpuscular Hemoglobin 26.1 pg (28.0-33.3); Mean Corpuscular Volume 81.4 fL (83.0-100.0); Mean Platelet Volume 8.4 fL (9.4-12.4); Monocytes # 0.6 K/mcL (0.0-1.3); Monocytes % 7.8 %; Neutrophils # 5.1 K/mcL (1.6-8.9); Platelet Count 240 K/mcL (140-400); Red Blood Count 3.45 M/mcL (4.19-5.50); Red Cell Distribution Width 15.4 % (11.5-14.5); Segmented Neutrophils % 69.6 %; White Blood Count 7.3 K/mcL (4.3-11.1)
[2020-09-05 07:14] LABS: BUN/Creatinine Ratio 12 (6-26); Blood Urea Nitrogen 17 mg/dL (8-23); Calcium 8.8 mg/dL (8.6-10.3); Carbon Dioxide 28 mEq/L (23-29); Chloride 105 mEq/L (98-107); Glucose 109 mg/dL (70-105); Osmolality,Calculated 294 (280-300); Potassium 3.4 mEq/L (3.5-5.1); Sodium 141 mEq/L (136-145); eGFR For African Americans > 60 (> 60); eGFR For Non-African Americans 51 (> 60)
[2020-09-05] MEDS: Ascorbic Acid 500 MG TABLET PO SCH ×2 (09:05→22:02)
[2020-09-05] MEDS: Cyanocobalamin (B-12) 1,000 MCG TABLET PO SCH (09:05)
[2020-09-05] MEDS: tiZANidine 4 MG TABLET PO SCH ×3 (09:05→22:01)
[2020-09-05] MEDS: Sucralfate 1 GM TABLET PO SCH ×3 (09:06→22:02)
[2020-09-05] MEDS: amLODIPine 5 MG TABLET PO SCH (09:06)
[2020-09-05] MEDS: Nystatin Cream 15 GM TUBE TP SCH ×3 (09:06→22:02)
[2020-09-05] MEDS: Ondansetron ODT 4 MG TAB.RAPDIS SL PRN (10:47)
[2020-09-05] MEDS: Acetaminophen 325 MG TABLET PO PRN (22:02)
[2020-09-06] MEDS: Ondansetron ODT 4 MG TAB.RAPDIS SL PRN (05:21)
[2020-09-06] MEDS: *HR* OxyCODONE Immed Rel 5 MG TABLET PO PRN ×3 (05:21→21:35)
[2020-09-06 06:01] LABS: eGFR For African Americans > 60 (> 60); eGFR For Non-African Americans 57 (> 60)
[2020-09-06] MEDS: tiZANidine 4 MG TABLET PO SCH ×3 (08:07→21:36)
[2020-09-06] MEDS: Cyanocobalamin (B-12) 1,000 MCG TABLET PO SCH (08:08)
[2020-09-06] MEDS: Ascorbic Acid 500 MG TABLET PO SCH ×2 (08:08→21:36)
[2020-09-06] MEDS: amLODIPine 5 MG TABLET PO SCH (08:08)
[2020-09-06] MEDS: Sucralfate 1 GM TABLET PO SCH ×3 (08:08→21:36)
[2020-09-06] MEDS: Nystatin Cream 15 GM TUBE TP SCH ×3 (08:09→21:36)
[2020-09-07] MEDS: Ondansetron ODT 4 MG TAB.RAPDIS SL PRN ×2 (05:25→22:31)
[2020-09-07 06:37] LABS: Basophils # 0.1 K/mcL (0.0-0.2); Basophils % 0.8 %; Eosinophils % 14.3 %; Hematocrit 26.9 % (37.5-50.1); Hemoglobin 8.5 g/dL (12.9-16.9); Immature Granulocytes % 0.4 % (0-4); Lymphocytes # 0.6 K/mcL (0.6-4.6); Lymphocytes % 8.6 %; Mean Corpuscular HGB Conc 31.6 g/dL (31.6-35.5); Mean Corpuscular Hemoglobin 25.8 pg (28.0-33.3); Mean Corpuscular Volume 81.8 fL (83.0-100.0); Mean Platelet Volume 8.2 fL (9.4-12.4); Monocytes # 0.6 K/mcL (0.0-1.3); Monocytes % 8.1 %; Neutrophils # 4.9 K/mcL (1.6-8.9); Platelet Count 240 K/mcL (140-400); Red Blood Count 3.29 M/mcL (4.19-5.50); Red Cell Distribution Width 15.4 % (11.5-14.5); Segmented Neutrophils % 67.8 %; White Blood Count 7.2 K/mcL (4.3-11.1)
[2020-09-07 06:54] LABS: Alanine Aminotransferase 39 Units/L (7-52); Albumin 3.3 g/dL (3.5-5.7); Alkaline Phosphatase 116 Units/L (34-104); Aspartate Amino Transferase 29 Units/L (13-39); BUN/Creatinine Ratio 12 (6-26); Bilirubin,Total 0.5 mg/dL (0.3-1.0); Blood Urea Nitrogen 14 mg/dL (8-23); Calcium 8.7 mg/dL (8.6-10.3); Carbon Dioxide 28 mEq/L (23-29); Chloride 104 mEq/L (98-107); Globulin 3.2 g/dL (2.4-3.5); Glucose 135 mg/dL (70-105); Osmolality,Calculated 295 (280-300); Sodium 141 mEq/L (136-145); Total Protein 6.5 g/dL (6.4-8.9); eGFR For African Americans > 60 (> 60); eGFR For Non-African Americans > 60 (> 60)
[2020-09-07 08:17] LABS: C-Reactive Protein 47 mg/L (Less than 10)
[2020-09-07] MEDS: Cyanocobalamin (B-12) 1,000 MCG TABLET PO SCH (08:55)
[2020-09-07] MEDS: tiZANidine 4 MG TABLET PO SCH ×3 (08:55→20:40)
[2020-09-07] MEDS: amLODIPine 5 MG TABLET PO SCH (08:56)
[2020-09-07] MEDS: Ascorbic Acid 500 MG TABLET PO SCH ×2 (08:56→20:40)
[2020-09-07] MEDS: Sucralfate 1 GM TABLET PO SCH ×3 (08:57→20:40)
[2020-09-07] MEDS: Nystatin Cream 15 GM TUBE TP SCH ×3 (08:57→20:41)
[2020-09-07] MEDS: *HR* OxyCODONE Immed Rel 5 MG TABLET PO PRN (13:06)
[2020-09-07] MEDS: Acetaminophen 325 MG TABLET PO PRN (20:39)
[2020-09-08 07:09] LABS: eGFR For African Americans > 60 (> 60); eGFR For Non-African Americans > 60 (> 60)
[2020-09-08] MEDS: Ondansetron ODT 4 MG TAB.RAPDIS SL PRN ×2 (07:53→23:03)
[2020-09-08] MEDS: Sucralfate 1 GM TABLET PO SCH ×3 (08:29→20:03)
[2020-09-08] MEDS: amLODIPine 5 MG TABLET PO SCH (08:30)
[2020-09-08] MEDS: Ascorbic Acid 500 MG TABLET PO SCH ×2 (08:30→20:02)
[2020-09-08] MEDS: tiZANidine 4 MG TABLET PO SCH ×3 (08:30→20:02)
[2020-09-08] MEDS: Cyanocobalamin (B-12) 1,000 MCG TABLET PO SCH (08:30)
[2020-09-08] MEDS: Nystatin Cream 15 GM TUBE TP SCH ×3 (08:34→20:03)
[2020-09-08] MEDS: *HR* OxyCODONE Immed Rel 5 MG TABLET PO PRN ×2 (15:35→21:50)
[2020-09-09] MEDS: *HR* OxyCODONE Immed Rel 5 MG TABLET PO PRN ×2 (06:37→20:22)
[2020-09-09 07:40] LABS: Basophils # 0.1 K/mcL (0.0-0.2); Basophils % 0.9 %; Eosinophils # 1.3 K/mcL (0.0-0.6); Eosinophils % 16.4 %; Hematocrit 28.8 % (37.5-50.1); Hemoglobin 9.1 g/dL (12.9-16.9); Immature Granulocytes % 0.3 % (0-4); Lymphocytes # 0.9 K/mcL (0.6-4.6); Lymphocytes % 10.9 %; Mean Corpuscular HGB Conc 31.6 g/dL (31.6-35.5); Mean Corpuscular Hemoglobin 25.9 pg (28.0-33.3); Mean Corpuscular Volume 82.1 fL (83.0-100.0); Mean Platelet Volume 8.8 fL (9.4-12.4); Monocytes # 0.6 K/mcL (0.0-1.3); Monocytes % 8.1 %; Platelet Count 260 K/mcL (140-400); Red Blood Count 3.51 M/mcL (4.19-5.50); Red Cell Distribution Width 15.9 % (11.5-14.5); Segmented Neutrophils % 63.4 %; White Blood Count 7.8 K/mcL (4.3-11.1)
[2020-09-09 07:51] LABS: BUN/Creatinine Ratio 12 (6-26); Blood Urea Nitrogen 13 mg/dL (8-23); Calcium 8.9 mg/dL (8.6-10.3); Carbon Dioxide 28 mEq/L (23-29); Chloride 106 mEq/L (98-107); Glucose 106 mg/dL (70-105); Osmolality,Calculated 293 (280-300); Potassium 3.6 mEq/L (3.5-5.1); Sodium 141 mEq/L (136-145); eGFR For African Americans > 60 (> 60); eGFR For Non-African Americans > 60 (> 60)
[2020-09-09] MEDS: Ascorbic Acid 500 MG TABLET PO SCH ×2 (08:18→20:22)
[2020-09-09] MEDS: amLODIPine 5 MG TABLET PO SCH (08:18)
[2020-09-09] MEDS: tiZANidine 4 MG TABLET PO SCH ×3 (08:19→20:22)
[2020-09-09] MEDS: Sucralfate 1 GM TABLET PO SCH ×3 (08:19→20:22)
[2020-09-09] MEDS: Nystatin Cream 15 GM TUBE TP SCH ×3 (08:20→20:24)
[2020-09-09] MEDS: Cyanocobalamin (B-12) 1,000 MCG TABLET PO SCH (08:20)
[2020-09-09] MEDS: Acetaminophen 325 MG TABLET PO PRN (14:40)
[2020-09-10] MEDS: *HR* OxyCODONE Immed Rel 5 MG TABLET PO PRN ×2 (05:58→20:46)
[2020-09-10 06:03] LABS: eGFR For African Americans > 60 (> 60); eGFR For Non-African Americans > 60 (> 60)
[2020-09-10] MEDS: amLODIPine 5 MG TABLET PO SCH (08:56)
[2020-09-10] MEDS: Cyanocobalamin (B-12) 1,000 MCG TABLET PO SCH (08:56)
[2020-09-10] MEDS: Ascorbic Acid 500 MG TABLET PO SCH ×2 (08:57→20:46)
[2020-09-10] MEDS: Sucralfate 1 GM TABLET PO SCH ×3 (08:57→20:46)
[2020-09-10] MEDS: Nystatin Cream 15 GM TUBE TP SCH ×3 (09:07→20:49)
[2020-09-10] MEDS: tiZANidine 4 MG TABLET PO SCH ×3 (11:21→20:46)
[2020-09-10] MEDS: Ondansetron ODT 4 MG TAB.RAPDIS SL PRN (15:58)
[2020-09-11 05:49] LABS: eGFR For African Americans > 60 (> 60); eGFR For Non-African Americans > 60 (> 60)
[2020-09-11] MEDS: *HR* OxyCODONE Immed Rel 5 MG TABLET PO PRN (06:22)
[2020-09-11] MEDS: amLODIPine 5 MG TABLET PO SCH (09:32)
[2020-09-11] MEDS: Cyanocobalamin (B-12) 1,000 MCG TABLET PO SCH (09:33)
[2020-09-11] MEDS: Nystatin Cream 15 GM TUBE TP SCH ×3 (09:33→17:50)
[2020-09-11] MEDS: Ascorbic Acid 500 MG TABLET PO SCH (09:33)
[2020-09-11] MEDS: Sucralfate 1 GM TABLET PO SCH ×3 (09:33→19:56)
[2020-09-11] MEDS: tiZANidine 4 MG TABLET PO SCH ×2 (09:33→15:29)
[2020-09-12] MEDS: Nystatin Cream 15 GM TUBE TP SCH ×4 (00:03→19:50)
[2020-09-12] MEDS: tiZANidine 4 MG TABLET PO SCH ×5 (00:03→19:50)
[2020-09-12] MEDS: Ascorbic Acid 500 MG TABLET PO SCH ×4 (00:03→19:50)
[2020-09-12] MEDS: Acetaminophen 325 MG TABLET PO PRN (02:03)
[2020-09-12 05:48] LABS: eGFR For African Americans > 60 (> 60); eGFR For Non-African Americans > 60 (> 60)
[2020-09-12] MEDS: Cyanocobalamin (B-12) 1,000 MCG TABLET PO SCH (09:43)
[2020-09-12] MEDS: amLODIPine 5 MG TABLET PO SCH (09:43)
[2020-09-12] MEDS: Sucralfate 1 GM TABLET PO SCH ×3 (09:44→20:03)
[2020-09-12] MEDS: *HR* OxyCODONE Immed Rel 5 MG TABLET PO PRN (19:50)
[2020-09-13] MEDS: Ondansetron ODT 4 MG TAB.RAPDIS SL PRN (04:57)
[2020-09-13 06:43] LABS: eGFR For African Americans > 60 (> 60); eGFR For Non-African Americans > 60 (> 60)
[2020-09-13] MEDS: Cyanocobalamin (B-12) 1,000 MCG TABLET PO SCH (09:11)
[2020-09-13] MEDS: tiZANidine 4 MG TABLET PO SCH ×3 (09:12→20:25)
[2020-09-13] MEDS: Sucralfate 1 GM TABLET PO SCH ×3 (09:12→20:25)
[2020-09-13] MEDS: amLODIPine 5 MG TABLET PO SCH (09:12)
[2020-09-13] MEDS: Ascorbic Acid 500 MG TABLET PO SCH ×2 (09:13→20:25)
[2020-09-13] MEDS: Nystatin Cream 15 GM TUBE TP SCH ×3 (09:13→20:25)
[2020-09-13] MEDS: Acetaminophen 325 MG TABLET PO PRN (20:25)
[2020-09-14] MEDS: *HR* OxyCODONE Immed Rel 5 MG TABLET PO PRN (06:08)
[2020-09-14 06:34] LABS: eGFR For African Americans > 60 (> 60); eGFR For Non-African Americans > 60 (> 60)
[2020-09-14 06:42] VITALS: BP 140/70
[2020-09-14] MEDS: amLODIPine 5 MG TABLET PO SCH (09:08)
[2020-09-14] MEDS: Sucralfate 1 GM TABLET PO SCH (09:08)
[2020-09-14] MEDS: tiZANidine 4 MG TABLET PO SCH (09:09)
[2020-09-14] MEDS: Nystatin Cream 15 GM TUBE TP SCH (09:09)
[2020-09-14] MEDS: Ascorbic Acid 500 MG TABLET PO SCH (09:09)
[2020-09-14] MEDS: Cyanocobalamin (B-12) 1,000 MCG TABLET PO SCH (09:09)
[2020-09-14] MEDS ORDERED: FLU Vac QV 20-21 (6Month+)/PF 0.5 ML SYRINGE IM ONE (11:18)
[2020-09-14] MEDS ORDERED: Vancomycin 1,250 MG/262.5 ML IV.SOLN IVPB SCH (16:00)
== END 2020-09-14 13:00 | disposition home or self-care (01) | DRG 945 ==
LOC: INPGRE 20:40
PROVIDERS: ADMIT Family Medicine; ATTEND Family Medicine